=== PATIENT | male | born 1980 | race Caucasian/White ===

== ENCOUNTER 2020-07-10 20:05 | Inpatient (IN) | payer OTHER ==
[2020-07-10 20:53] VITALS: BMI 27.3
[2020-07-10] MEDS ORDERED: MAG HYDROX/AL HYDROX/SIMETH 30 ML UNIT-DOSE CUP PO PRN (21:38)
[2020-07-10] MEDS ORDERED: hydrOXYzine PAMOATE 25 MG CAPSULE (FP) PO PRN (21:38)
[2020-07-10] MEDS ORDERED: BISMUTH SUBSALICYLATE 524 MG/30 ML UD PO PRN (21:38)
[2020-07-10] MEDS ORDERED: MAGNESIUM HYDROX 2400MG/30ML ORAL SUSPENSION 30 ML CUP PO PRN (21:38)
[2020-07-10] MEDS ORDERED: MAGNESIUM CITRATE 300 ML BOTTLE PO PRN (21:38)
[2020-07-10] MEDS ORDERED: MENTHOL/PHENOL 1 EACH UD MM PRN (21:38)
[2020-07-10] MEDS ORDERED: METHOCARBAMOL 500 MG TABLET PO PRN (21:38)
[2020-07-10] MEDS ORDERED: P-EPHED 60MG/TRIPROLIDI 2.5MG TABLET PO PRN (21:38)
[2020-07-10] MEDS ORDERED: IBUPROFEN 400 MG TABLET (FP) PO PRN (21:38)
[2020-07-10] MEDS ORDERED: ONDANSETRON *ODT* 4 MG TABLET SL PRN (21:38)
[2020-07-10] MEDS ORDERED: ACETAMINOPHEN 325 MG TABLET (FP) PO PRN ×2 (21:38)
[2020-07-10] MEDS ORDERED: MELATONIN 5 MG TABLETS PO SCH (22:00)
[2020-07-10] MEDS ORDERED: THIAMINE HCL 100 MG TABLET (FP) PO SCH (22:00)
[2020-07-10] MEDS: cloNIDine HCL 0.1 MG TABLET PO PRN (22:54)
[2020-07-11 09:36] VITALS: TEMP 98.1
[2020-07-11] MEDS ORDERED: PRENATAL VITAMINS W/ FOLIC ACID TABLET (FP) PO SCH (10:00)
[2020-07-11] MEDS: cloNIDine HCL 0.1 MG TABLET PO PRN (10:33)
[2020-07-11 12:51] LABS: HEMATOCRIT 45.9 % (35.4-49); HEMOGLOBIN 15.7 GM/dL (11.7-16.9); MCHC 34.2 g/dl (32.0-35.9); MEAN CELL VOLUME 84.6 fl (80-96); MEAN PLT VOLUME 7.7 fl (7.5-11.1); PLATELET COUNT 357 K/MM3 (134-434); RBC 5.42 M/mm3 (4.00-5.60); RDW 13.6 % (11.9-15.9)
[2020-07-11 12:57] LABS: POTASSIUM 3.9 mmol/L (3.5-5.1)
[2020-07-11 13:09] LABS: ALBUMIN 4.6 g/dl (3.4-5.0); BLOOD UREA NITROGEN 13.7 mg/dL (7-18); CALCIUM 9.8 mg/dL (8.5-10.1)
[2020-07-11 13:13] LABS: TOT PROT 7.9 g/dl (6.4-8.2)
[2020-07-11 13:19] VITALS: BP 124/61; PULSE 73
== END 2020-07-11 15:26 | disposition home or self-care (01) | DRG 896 ==
LOC: YASAS 20:05 → Y6N 22:01
PROVIDERS: ADMIT Allergy & Immunology; ATTEND Allergy & Immunology
PROC: HZ2ZZZZ Detoxification Services for Substance Abuse Treatment (ICD-10-PCS; principal; 2020-07-10)
DX: F11.23 Opioid dependence with withdrawal (principal); U07.1 COVID-19; I10 Essential (primary) hypertension; J45.909 Unspecified asthma, uncomplicated; M25.512 Pain in left shoulder
CPT/HCPCS: 36415; 80053; 85027; 86780; C9803; J0735; U0003; U0005